=== PATIENT | female | born 1955 | race Caucasian/White ===

== ENCOUNTER 2025-07-10 16:14 | Emergency (ER) | payer MEDICARE ==
[~2025-07-10] VITALS: Ht 162.6 cm; Wt 119.3 kg
[2025-07-10] MEDS ORDERED: DiphenhydrAMINE HCl 50 MG/ML 1ML Vial IV ONE (16:20)
== END 2025-07-10 18:52 | disposition home or self-care (01) ==
LOC: ER 16:14
DX: T63.441A Toxic effect of venom of bees, accidental (unintentional), initial encounter (principal); R22.0 Localized swelling, mass and lump, head; Z88.8 Allergy status to other drugs, medicaments and biological substances
CPT/HCPCS: 96374; 96375; 99283-25; J1200; J2919